=== PATIENT | male | born 1985 | race Caucasian/White ===

== ENCOUNTER 2017-03-29 11:09 | Emergency (ER) | payer BC ==
[~2017-03-29] VITALS: Ht 182.9 cm; Wt 86.6 kg
--- NOTE | 2017-03-29 11:29 | NUR ---
DR MATA AT THE BEDSIDE FOR EVAL AND EXAM.
[2017-03-29] MEDS ORDERED: ONDANSETRON 4 MG/2 ML VIAL IV ONE (11:30)
[2017-03-29] MEDS ORDERED: IV NORMAL SALINE 1000 ML BAG IV ONE ×2 (11:30→13:30)
[2017-03-29] MEDS ORDERED: PANTOPRAZOLE SODIUM 40 MG VIAL IV ONE (11:30)
[2017-03-29 11:48] LABS: BASOPHILS # (AUTO) 0.4 K/uL (0.0-8.0); BASOPHILS % (AUTO) 3.4 % (0.0-2.0); EOSINOPHILS # (AUTO) 0.2 K/uL (0.0-0.7); EOSINOPHILS % (AUTO) 1.9 % (0.0-7.0); HEMATOCRIT 53.8 % (40-50); HEMOGLOBIN 18.2 G/DL (14.0-18.0); LYMPHOCYTES # (AUTO) 1.3 K/uL (20.0-40.0); LYMPHOCYTES % (AUTO) 11.1 % (20.5-51.5); MEAN CORPUSCULAR HEMOGLOBIN 30.8 UUG (27.0-31.0); MEAN CORPUSCULAR HGB CONC 34 g/dL (32.0-37.0); MEAN CORPUSCULAR VOLUME 90.7 FL (82.0-92.0); MONOCYTES # (AUTO) 0.9 K/uL (2.0-10.0); MONOCYTES % (AUTO) 7.4 % (0.0-11.0); NEUTROPHILS % (AUTO) 76.2 % (38.5-71.5); PLATELET COUNT (AUTO) 554 K/UL (150-450); RED BLOOD CELL COUNT(AUTO) 5.93 MIL/UL (4.7-6.1); RED CELL DISTRIBUTION WIDTH 15.3 % (11.5-14.5); WHITE BLOOD COUNT (AUTO) 11.8 K/UL (4.0-11.2)
[2017-03-29] MEDS ORDERED: ONDANSETRON 4 MG/2 ML VIAL ONE (11:51)
[2017-03-29] MEDS ORDERED: PANTOPRAZOLE SODIUM 40 MG VIAL ONE (11:51)
[2017-03-29 11:57] LABS: ALBUMIN 4.3 g/dL (3.4-5.0); BILIRUBIN,DIRECT 0.2 mg/dL (0.0-0.2); TOTAL PROTEIN, SERUM 8.2 g/dL (6.4-8.2)
[2017-03-29 12:02] LABS: CALCIUM 12.5 mg/dL (8.5-10.1)
[2017-03-29 12:05] LABS: CREATININE 1.4 mg/dL (0.6-1.3); POTASSIUM 5.2 mmol/L (3.5-5.1)
[2017-03-29 12:15] LABS: BAND % (MANUAL) 2 % (0-10); BASOPHILS % (MANUAL) 1 % (0-2); EOSINOPHILS % (MANUAL) 1 % (0-8); LYMPHOCYTES % (MANUAL) 18 % (20-40); MONOCYTES % (MANUAL) 6 % (2-10); NEUTROPHILS % (MANUAL) 72 % (42-75)
[2017-03-29 12:17] LABS: PLATELET ESTIMATE ADEQUATE
[2017-03-29 12:18] LABS: ANISOCYTOSIS 1+
[2017-03-29] MEDS ORDERED: IV D5 1/2 NS 1000 ML 1,000 ML IV ONE (14:30)
--- NOTE | 2017-03-29 15:20 | NUR ---
PT ABLE TO TOLORATE PO FLUID. DENIES N/V.
[2017-03-29 15:36] LABS: BASOPHILS # (AUTO) 0.1 K/uL (0.0-8.0); EOSINOPHILS # (AUTO) 0.2 K/uL (0.0-0.7); EOSINOPHILS % (AUTO) 2.1 % (0.0-7.0); HEMATOCRIT 47.7 % (40-50); HEMOGLOBIN 16.1 G/DL (14.0-18.0); LYMPHOCYTES # (AUTO) 1.4 K/uL (20.0-40.0); LYMPHOCYTES % (AUTO) 12.4 % (20.5-51.5); MEAN CORPUSCULAR HEMOGLOBIN 31.1 UUG (27.0-31.0); MEAN CORPUSCULAR HGB CONC 34 g/dL (32.0-37.0); MEAN CORPUSCULAR VOLUME 92.1 FL (82.0-92.0); MONOCYTES % (AUTO) 8.6 % (0.0-11.0); NEUTROPHILS # (AUTO) 8.5 K/uL (1.8-8.9); NEUTROPHILS % (AUTO) 75.9 % (38.5-71.5); PLATELET COUNT (AUTO) 448 K/UL (150-450); RED BLOOD CELL COUNT(AUTO) 5.18 MIL/UL (4.7-6.1); RED CELL DISTRIBUTION WIDTH 15.1 % (11.5-14.5); WHITE BLOOD COUNT (AUTO) 11.2 K/UL (4.0-11.2)
[2017-03-29 15:44] LABS: *BILIRUBIN,URIN NEGATIVE (NEGATIVE); *BLOOD, URINE 1+ (NEGATIVE); *CLARITY,URINE CLEAR (CLEAR); *COLOR,URINE YELLOW (YELLOW); *KETONES,URINE NEGATIVE (NEGATIVE); *PROTEIN,URINE 1+ (NEGATIVE); LEUKOCYTE ESTERASE ,URINE NEGATIVE (NEGATIVE); NITRITE, URINE NEGATIVE (NEGATIVE); UGLUCOSE NEGATIVE (NEGATIVE)
[2017-03-29 15:48] LABS: CALCIUM 9.9 mg/dL (8.5-10.1); CREATININE 1.2 mg/dL (0.6-1.3); POTASSIUM 5.1 mmol/L (3.5-5.1)
[2017-03-29 15:52] LABS: BACTERIA,URINE NONE SEEN /HPF (NONE SEEN); SQUAMOUS EPITHELIAL CELL,UR FEW /HPF (NONE SEEN); WBC,URINE 0-3 /HPF (0-3)
--- NOTE | 2017-03-29 16:15 | NUR ---
IV removed. Catheter intact and site benign. Pressure and 4x4 gauze applied to site. No bleeding noted.
[2017-03-29 16:17] VITALS: BP 129/88
--- NOTE | 2017-03-29 16:17 | NUR ---
Patient discharged to home in stable conditon. Written and verbal after care instructions given. Patient verbalizes understanding of instructions.
== END 2017-03-29 16:18 | disposition home or self-care (01) ==
LOC: ER 11:09
DX: E86.0 Dehydration (principal); R11.10 Vomiting, unspecified; A08.4 Viral intestinal infection, unspecified; Z88.8 Allergy status to other drugs, medicaments and biological substances
CPT/HCPCS: 36415; 83690; 85025; 93005; A4663; C9113; J2405; J3490; J7030

== ENCOUNTER 2019-04-23 07:59 | Emergency (ER) | payer SELFPAY ==
[~2019-04-23] VITALS: Ht 180.3 cm; Wt 83.9 kg
--- NOTE | 2019-04-23 08:10 | NUR ---
Dr Sanchez at the bedside for MSE.
[2019-04-23] MEDS ORDERED: PIPERACILLIN SODIUM/TAZO 3.375 GM VIAL ONE (08:26)
[2019-04-23] MEDS ORDERED: TDAP DIPH,PERTUSS,TET VAC/PF 0.5 ML DISP.SYRIN IM ONE ×2 (08:26→08:30)
[2019-04-23] MEDS ORDERED: VANCOMYCIN IV 200 ML ONE (08:26)
[2019-04-23] MEDS ORDERED: HYDROMORPHONE 1 MG/1 ML DISP.SYRIN ONE (08:28)
[2019-04-23] MEDS ORDERED: VANCOMYCIN IV 1,000 MG in IV DEXTROSE 5% 250 ML IV ONE (08:30)
[2019-04-23] MEDS ORDERED: PIPERACILLIN SODIUM/TAZOBACTAM 3.375 G in IV DEXTROSE 5% 50 ML IV ONE (08:30)
[2019-04-23] MEDS ORDERED: HYDROMORPHONE 1 MG/1 ML DISP.SYRIN IV ONE (08:30)
[2019-04-23 08:31] LABS: BASOPHILS # (AUTO) 0.1 K/uL (0.0-8.0); BASOPHILS % (AUTO) 0.7 % (0.0-2.0); EOSINOPHILS # (AUTO) 0.1 K/uL (0.0-0.7); EOSINOPHILS % (AUTO) 0.6 % (0.0-7.0); HEMATOCRIT 43.9 % (36.7-47.1); HEMOGLOBIN 14.7 g/dL (12.5-16.3); LYMPHOCYTES # (AUTO) 1.1 K/uL (20.0-40.0); LYMPHOCYTES % (AUTO) 5.6 % (20.5-51.5); MEAN CORPUSCULAR HEMOGLOBIN 30.9 uug (23.8-33.4); MEAN CORPUSCULAR HGB CONC 33 g/dL (32.5-36.3); MEAN CORPUSCULAR VOLUME 92.5 fL (73.0-96.2); MONOCYTES # (AUTO) 1.8 K/uL (2.0-10.0); MONOCYTES % (AUTO) 9.1 % (0.0-11.0); NEUTROPHILS # (AUTO) 16.4 K/uL (1.8-8.9); PLATELET COUNT (AUTO) 398 K/uL (152-348); RED BLOOD CELL COUNT(AUTO) 4.74 MIL/uL (4.06-5.63); WHITE BLOOD COUNT (AUTO) 19.5 K/uL (3.6-10.2)
[2019-04-23 08:40] LABS: CREATININE 0.9 mg/dL (0.6-1.3); POTASSIUM 3.4 mmol/L (3.5-5.1)
--- NOTE | 2019-04-23 08:40 | NUR ---
called [facility] for transfer, Dr. donaldson talked to the sales representative supervisor.
--- NOTE | 2019-04-23 08:40 | NUR ---
Jabier beckman in ED - 04/23/19 at 0935 by JAY Patient discharged to home in stable conditon. Written and verbal after care instructions given. Patient and mother verbalize understanding of instructions.
[2019-04-23] MEDS ORDERED: IV D5 1/2 NS 1000 ML 1,000 ML IV ONE (08:51)
--- NOTE | 2019-04-23 09:06 | NUR ---
Patient is resting comfortably in bed with eyes closed, NAD noted.
--- NOTE | 2019-04-23 10:10 | NUR ---
Dr Sanchez spoke to Ortho surgeon from [facility].
--- NOTE | 2019-04-23 10:16 | NUR ---
Placed a call to Dr Hooker (Ortho), per MD request.
--- NOTE | 2019-04-23 11:02 | NUR ---
CALLED [facility] AGAIN AND DR. CHAMBERLAIN TALKED TO BELLOWS FILLER.
--- NOTE | 2019-04-23 11:20 | NUR ---
Recieved a call from Moshe([facility] rep). Pt to be transfered to [facility], [facility] #[id number]. Accepting Md DR Ward, and Dr garcia.
--- NOTE | 2019-04-23 11:25 | NUR ---
Called [facility] and spoke to RN, notified them of pt's arriving.
--- NOTE | 2019-04-23 11:34 | NUR ---
Called [facility] for BLS transfer, ETA 1200, trip #[id number].
--- NOTE | 2019-04-23 11:55 | NUR ---
Report provided for radio time sales supervisor, Pt left Er in stable condition. All belongings sent w/ Pt.
== END 2019-04-23 12:17 | disposition short-term general hospital (02) ==
LOC: ER 07:59
DX: S54.21XA Injury of radial nerve at forearm level, right arm, initial encounter (principal); T79.A0XA Compartment syndrome, unspecified, initial encounter; L02.511 Cutaneous abscess of right hand; Z88.8 Allergy status to other drugs, medicaments and biological substances; X58.XXXA Exposure to other specified factors, initial encounter; Y93.89 Activity, other specified; Y92.89 Other specified places as the place of occurrence of the external cause; Y99.8 Other external cause status
CPT/HCPCS: 36415; 73130; 80048; 83605; 85025; 85730; 86850; 86900; 86901; 87040 ×2; 90471; 90715; 93931; 96365; 96366; 96368; 96375; 99291; J1170; J2543; J3370; J3490; A4663

== ENCOUNTER 2019-08-09 21:46 | Emergency (ER) | payer MEDICAID ==
[~2019-08-09] VITALS: Ht 177.8 cm; Wt 77.1 kg
[2019-08-09] MEDS ORDERED: FLUORESCEIN SODIUM 1 MG STRIP ONE (22:34)
[2019-08-09] MEDS ORDERED: TETRACAINE HCL 0.5% OPHT DROP 2 ML BOTTLE ONE (22:34)
--- NOTE | 2019-08-09 22:40 | NUR ---
MD AT BEDSIDE FOR HX AND PHYSICAL PT ABLE TO TOLERATE EXAM (FLUORESCEINE+TETRA DROPS+WOODSLAMP) OF LEFT EYE PT NAD ASLEEP ON SUPINE BED AT LOWEST POSITION SDERAILSX2 UP
[2019-08-09] MEDS ORDERED: FLUORESCEIN SODIUM 1 MG STRIP OP ONE (22:45)
[2019-08-09] MEDS ORDERED: TETRACAINE HCL 0.5% OPHT DROP 2 ML BOTTLE OP ONE (22:45)
--- NOTE | 2019-08-09 23:49 | NUR ---
PT IS ASLEEP, NAD ON SUPINE
--- NOTE | 2019-08-10 03:49 | NUR ---
MD AT BEDSIDE FOR UPDATE
[2019-08-10 04:08] VITALS: BP 117/85
--- NOTE | 2019-08-10 04:08 | NUR ---
Patient discharged to home in stable conditon. Written and verbal after care instructions given. Patient verbalizes understanding of instructions. AMBULATORY W/ STABLE GAIT ALL BELONGINGS W/ PT
== END 2019-08-10 04:09 | disposition home or self-care (01) ==
LOC: ER 21:46
DX: H10.32 Unspecified acute conjunctivitis, left eye (principal); Z88.8 Allergy status to other drugs, medicaments and biological substances
CPT/HCPCS: A4663

== ENCOUNTER 2019-09-14 22:23 | Emergency (ER) | payer MEDICAID ==
[~2019-09-14] VITALS: Ht 177.8 cm; Wt 72.6 kg
--- NOTE | 2019-09-14 22:47 | NUR ---
Patient states suicidal ideation, Security at bedside to wand patient and searched for weapons and contraband.
--- NOTE | 2019-09-14 22:50 | NUR ---
Suicide precautions implemented, placed patient in gown, all belongings placed in bag at nursing station away from patient.
--- NOTE | 2019-09-14 23:25 | NUR ---
Dr. Montoya at bedside for MSE.
--- NOTE | 2019-09-14 23:49 | NUR ---
Pt unable to provide urine at this time, provided with water.
[2019-09-15 00:05] LABS: ALANINE AMINOTRANSFERASE 22 U/L (16-63); ALKALINE PHOSPHATASE 76 U/L (50-136); ASPARTATE AMINOTRANSFERASE 11 U/L (15-37); BILIRUBIN,DIRECT 0.2 mg/dL (0.0-0.2); BILIRUBIN,TOTAL 0.6 mg/dL (0.2-1.0); CARBON DIOXIDE 27 mmol/L (21-32); CHLORIDE 101 mmol/L (98-107); CREATINE KINASE, TOTAL 167 U/L (39-308); CREATININE 1.2 mg/dL (0.6-1.3); GLUCOSE 85 mg/dL (74-106); POTASSIUM 3.9 mmol/L (3.5-5.1); UREA NITROGEN, BLOOD 17 mg/dL (7-18)
[2019-09-15 00:07] LABS: ACETAMINOPHEN < 2.0 ug/mL (10-30)
[2019-09-15 00:11] LABS: ETHANOL < 3 MG/DL (0-0)
[2019-09-15 00:12] LABS: THYROID STIMULATING HORMONE 1.198 mIU/mL (0.358-3.740)
--- NOTE | 2019-09-15 00:15 | NUR ---
Pt provided urine sample, sent to lab.
[2019-09-15 00:16] LABS: BASOPHILS # (AUTO) 0.1 K/uL (0.0-8.0); BASOPHILS % (AUTO) 1.1 % (0.0-2.0); EOSINOPHILS # (AUTO) 0.1 K/uL (0.0-0.7); EOSINOPHILS % (AUTO) 1.3 % (0.0-7.0); HEMATOCRIT 39.4 % (36.7-47.1); LYMPHOCYTES # (AUTO) 1.7 K/uL (20.0-40.0); LYMPHOCYTES % (AUTO) 16.5 % (20.5-51.5); MEAN CORPUSCULAR HEMOGLOBIN 22.2 uug (23.8-33.4); MEAN CORPUSCULAR HGB CONC 30 g/dL (32.5-36.3); MEAN CORPUSCULAR VOLUME 72.9 fL (73.0-96.2); MONOCYTES # (AUTO) 0.8 K/uL (2.0-10.0); MONOCYTES % (AUTO) 7.4 % (0.0-11.0); NEUTROPHILS # (AUTO) 7.6 K/uL (1.8-8.9); NEUTROPHILS % (AUTO) 73.7 % (38.5-71.5); PLATELET COUNT (AUTO) 610 K/uL (152-348); RED BLOOD CELL COUNT(AUTO) 5.41 MIL/uL (4.06-5.63); WHITE BLOOD COUNT (AUTO) 10.3 K/uL (3.6-10.2)
--- NOTE | 2019-09-15 00:24 | NUR ---
Called Mike Moreira [facility] for psych eval.
[2019-09-15 00:25] LABS: *BLOOD, URINE NEGATIVE (NEGATIVE); *COLOR,URINE YELLOW (YELLOW); *KETONES,URINE TRACE (NEGATIVE); LEUKOCYTE ESTERASE ,URINE NEGATIVE (NEGATIVE); NITRITE, URINE NEGATIVE (NEGATIVE); PH,URINE 5.5 (5.0-8.0); UGLUCOSE NEGATIVE (NEGATIVE)
[2019-09-15 00:29] LABS: *BILIRUBIN,URIN 1+ (NEGATIVE); *CLARITY,URINE HAZY (CLEAR)
[2019-09-15 00:41] LABS: *AMPHETAMINE, URINE NEGATIVE (NEGATIVE); *BARBITURATE, URINE NEGATIVE (NEGATIVE); *CANNABINOID, URINE POSITIVE (NEGATIVE); *COCCAINE, URINE NEGATIVE (NEGATIVE); *OPIATE, URINE NEGATIVE (NEGATIVE); *PHENCYCLIDINE SCREEN,URINE NEGATIVE (NEGATIVE)
--- NOTE | 2019-09-15 00:55 | NUR ---
Mike MENDIETAW arrived to ER for pt psych evaluation.
[2019-09-15 01:14] LABS: BACTERIA,URINE NONE SEEN /HPF (NONE SEEN); MUCUS,URINE MANY /LPF (0-FEW); RBC,URINE 0-3 /HPF (0-3); SQUAMOUS EPITHELIAL CELL,UR FEW /HPF (NONE SEEN); WBC,URINE 0-3 /HPF (0-3)
[2019-09-15 01:27] LABS: EOSINOPHILS % (MANUAL) 1 % (0-8); LYMPHOCYTES % (MANUAL) 19 % (20-40); MONOCYTES % (MANUAL) 6 % (2-10); NEUTROPHILS % (MANUAL) 74 % (42-75)
--- NOTE | 2019-09-15 02:18 | NUR ---
Pt sleeping in bed, no acute signs of distress.
--- NOTE | 2019-09-15 07:14 | NUR ---
Report given to Jane arshad.
--- NOTE | 2019-09-15 07:15 | NUR ---
Laser Beam Machine Operator assumes care. Patient is for discharge by MD to any care home home. Patient wants to go to "[facility]" which opens for calls@1000am. Written and verbal after care instructions given. Patient verbalizes understanding of instructions. Breakfast tray ordered. ER social worker school Pamela notified.
--- NOTE | 2019-09-15 08:03 | NUR ---
Breakfast tray is at bedside. Extra sandwich, orange juice & bottled water were given as well per patient's request.
--- NOTE | 2019-09-15 08:03 | NUR ---
Note karuna in EDM - 09/15/19 at 0808 by GABRIELLA Kirsten perez is at bedside. Patient wants to leave, notified. Nursing printing supervisor Chetna notified. Security assistance requested.
--- NOTE | 2019-09-15 10:29 | NUR ---
8:10am: SW arrived to ED, per message from ROBBIN Lara request hospice social worker. JARRETT met with Jane to discuss patient's case. Per Jane, patient is open to going to [facility] homeless care home, however care home is open for call from 10am-11am. SW then met with patient, who was in his assigned ED bed. Patient is a 33 year old male, alert, oriented, cooperative with this SW, behavior and eye contact were WNL. Patient came in to the ED last night, seen by ED MD and cleared. Patient also expressed SI with no plan, and was seen by otr owner operator Mike Moreira. Per iMke Moreira, patient does not meet criteria for a psychiatric hold (see Telephone Worker's notes for details). Patient is homeless, and stated that he was evicted from his apartment a few weeks ago, and has been homeless and living on the streets since then. Patient expressed wanting to go to a homeless care home. ROBBIN Lara had already provided patient with the homeless resource packet, and patient stated that he was interested in going to [facility] homeless care home. SW explained that SW would need to contact them between the hours of 10-11am to check on availability and patient expressed understanding. Patient has a history of substance abuse and tested positive for cocaine in his UDS. Patient expressed wanting resources for drug rehab treatment centers. SW discussed the option of going to a detox/treatment program from the ED, and patient expressed agreement. SW stated that SW can attempt referrals and see if there were current treatment programs available to accept patienttoday, and patient expressed agreement. Patient agreed that if there were no drug treatment options available for today, that he would then go to a homeless care home. SW to work on discharge planning. Patient provided SW with verbal authorization to fax his medical records to drug treatment programs for possible admission.
--- NOTE | 2019-09-15 10:45 | NUR ---
8:20am: JARRETT attempted to contact Vijay at [facility] [phone], message left for Vijay. 9:15am: JARRETT contacted Colton Byrne at [facility] [phone]. JARRETT able to speak with Colton, who asked for SW to fax patient's face sheet and MD notes to him for review and he can then help coordinate a search for a drug treatment program for the patient. SW agreed. At 9:20am, SW once again met with the patient and informed him of above, and once again obtained verbal authorization to fax his medical records to [facility]. Patient expressed agreement and provided verbal authorization to this SW. at 9:25am, JARRETT faxed patient's face sheet, ED MD notes, and gold miner notes to Colton at [phone]. Awaiting response.
--- NOTE | 2019-09-15 10:52 | NUR ---
Patient is resting comfortably on gurney with eyes closed. Patient ate approx 90% of his breakfast tray.
--- NOTE | 2019-09-15 10:54 | NUR ---
10:45am: JARRETT received a call back from Colton Byrne at [facility], who stated that he was able to get the patient admitted at [facility], [address] [place] [address]. Colton stated that the location of [facility] was in the [address], 6th floor, salesperson women's dresses Aundrea [phone]. Colton stated that they can admitted the patient at 1:30pm. JARRETT to follow-up with Aundrea, and work with ROBBIN Lara to coordinate discharge and transport of patient.
--- NOTE | 2019-09-15 11:20 | NUR ---
Another sandwich & orange juice were provided per patient's request. Pamela arranged for patient to go to a treatment Center by taxi (instead of going to a senior living). Patient has been medically cleared for discharge by Adriano & psychiatrically cleared by general production worker Mike Moreira earlier.
--- NOTE | 2019-09-15 11:49 | NUR ---
11:05am: SW met with the patient in his assigned ED room, and informed him that patient has been accepted at [facility], and has a 1:30pm admission time. Patient expressed agreement and thanked SW for making these arrangements. Patient expressed agreement to go to the detox program. SW informed the patient that the hospital will arrangement transportation for the patient, and patient expressed agreement. Patient asked for clothes, since his were soiled, and clothing was provided to the patient. Patient also received a breakfast tray earlier this morning, and RN will also arrange for patient to have lunch before leaving for [facility]. Patient was in agreement with lunch.
--- NOTE | 2019-09-15 11:52 | NUR ---
Taxi was called. Patient will wait in the ER waiting room. New clothes (shoes, shirt, socks & shorts) were provided per patient's request. RUE dry open wounds were redressed with non-adhering dressing & kerlix. Updated written and verbal discharge instructions were given to patient. Patient verbalizes understanding & compliance of instructions. Patient is ambulatory with steady gait. Patient was also given list of available shelters in surrounding area.
--- NOTE | 2019-09-15 11:53 | NUR ---
11:20pm: JARRETT called Aundrea at [facility] [phone]. Aundrea stated that she had all necessary information for the patient. JARRETT stated to Aundrea that patient has been cleared from the ED and discharged, and that the hospital will be arranging a taxi cab for the patient to go to [facility]. Aundrea provided JARRETT with instructions for the taxi cab to pull up in front of the ED entrance at [facility], and then have the patient go through the ED and ask the ED senior receptionist to show him where the elevators are for [facility], which is located on the 6th floor of the [place] [address]. JARRETT thanked Aundrea for the instructions provided. Taxi voucher obtained from nursing house furnishings supervisor, and given to ROBBIN Lara with instructions to tell the otr hazmat company driver to pull up in front of the ED entrance once the lift driver gets to [facility]. 11:30am: JARRETT met with the patient and provided him with contact information for [facility] ([address] [place] [id number], contact: Aundrea, ), and instructions to go through the ED at [facility] and ask the ED senior receptionist to guide him to the elevators. Patient expressed understanding and agreement. Previously signed Homeless Waiver Form was updated, and patient signed a new and updated form. Homeless resource packet was already provided earlier today by nursing, which included the following information: the [facility] homeless directory which provides a list of places that individuals can go to throughout the week for hot meals, sack lunches, food pantries, and showers; a list of mental health clinics: [facility] [address] [place] [address], ; [facility] [address] [place] [address], ; [facility] [address] [place] [address], ; a list of medical clinics: [facility] [address], [place]. [place], ; [facility] [place] [address], [address], [place] [address]; [facility] [address] [place] [address], ; a list of substance abuse programs: [facility] Substance Abuse Self-helpline ; [facility] ; [facility] ; [facility] ; [facility] ; [facility] [phone]; [facility] [phone], and a list of homeless shleters: [facility], [address] [place] [address], ; [facility], [address] [address], ; [facility], [address] [place] [address], [phone]; and [employer] [facility], [address] [place] [address], . SW also provided patient with information on locations of pharmacies throughout the [facility]. ROBBIN Lara to call taxi cab to transport patient.
== END 2019-09-15 11:58 | disposition home or self-care (01) ==
LOC: ER 22:24
DX: F32.9 Major depressive disorder, single episode, unspecified (principal); L03.113 Cellulitis of right upper limb; Z88.8 Allergy status to other drugs, medicaments and biological substances; Z59.0 Homelessness
CPT/HCPCS: 36415; 80048; 80076; 80307; 81000; 81001; 82550; 84443; 85007; 85025; 99284; G0480 ×2; G0481; 70030-TC; A4217; A4663

== ENCOUNTER 2019-09-28 07:30 | Emergency (ER) | payer MEDICAID, OTHER ==
[~2019-09-28] VITALS: Ht 180.3 cm; Wt 72.6 kg
[2019-09-28] MEDS ORDERED: NEOMY/BACITRA/POLYMYXIN B OINT UD PACKET TP ONE (08:06)
--- NOTE | 2019-09-28 08:24 | NUR ---
patient was seen by MD. Wound on arm is not red or swollen, no drainage noted. I bandaged it with sterile dressing. i gave him 2 sndwiches and juice. He stated he does not want referal or information about homeless half-way or showers/meals because "they are not good, waste of time". States he can "take care of myself". i also gave him new socks. He was wearing clean, long pants and a clean shirt. He had sneakers on that were not torn.
--- NOTE | 2019-09-28 08:40 | NUR ---
PIPER, RX AND FOLLOW UP INSTRUCTIONS GIVEN AND EXPLAINED TO PATIENT WHO STATES SHE UNDERSTANDS ALL INSTRUCTIONS. patient states he is [employer] insurance and can get Rx filled soon and will follow up with
== END 2019-09-28 08:43 | disposition home or self-care (01) ==
LOC: ER 07:32
DX: Z48.01 Encounter for change or removal of surgical wound dressing (principal); F32.9 Major depressive disorder, single episode, unspecified; Z88.8 Allergy status to other drugs, medicaments and biological substances; Z59.0 Homelessness
CPT/HCPCS: A4663